=== PATIENT | male | born 1985 | race Caucasian/White ===

== ENCOUNTER 2023-01-16 13:41 | Outpatient (CLI) | payer BC, SELFPAY ==
--- NOTE | 2023-01-16 | MR_ITS ---
WS: [id number] MRI CERVICAL SPINE NONCONTRAST TECHNIQUE: Sagittal T1, T2 and STIR imaging. Axial T2, gradient, and fiesta imaging. CLINICAL INFORMATION: NECK PAIN COMPARISON: None. FINDINGS: Straightening of the normal cervical lordosis. Cord signal is normal. C2-C3: Normal. C3-C4: Mild facet arthropathy. Spinal canal and foramen are patent. C4-C5: Mild facet arthropathy. Mild LEFT and no significant RIGHT foraminal narrowing. Spinal canal i s patent. C5-C6: Mild disc osteophytic ridging. Mild facet arthropathy. Mild bilateral bony foraminal narrowing . C6-C7: Mild facet arthropathy. Spinal canal and foramen are patent. C7-T1: Mild disc bulge with a tiny annular fissure. Spinal canal and foramen are patent. Visualized brain stem structures: Normal. Prevertebral soft tissues: Normal. IMPRESSION: 1. Straightening of the normal cervical lordosis. Cord signal is normal. 2. No suspicious lesions in the cervical cord. No high-grade central canal narrowing. 3. Mild bilateral bony foraminal narrowing C5-C6 with mild facet arthropathy. 4. Tiny annular fissure C7-T1. 5. Mild facet arthropathy C3-C4 C4-C5 and C5-C6.
--- NOTE | 2023-01-16 14:01 | MR_ITS ---
WS: [id number] MRI HEAD WITHOUT CONTRAST TECHNIQUE: Sagittal T1, T2 axial, T2 axial FLAIR, axial and coronal T1 images, axial susceptibility w eighted imaging, axial diffusion weighted images, and coronal T2 images were obtained. CLINICAL INFORMATION: HEADACHE COMPARISON: CT head 02/26/2015 FINDINGS: No evidence restricted diffusion to suggest acute ischemia. Ventricular system and basal cisterns are patent. Normal posterior fossa. Normal vascular flow voids at the skull base. No extra-axial fluid c ollections. No mass or mass effect. Mild mucosal thickening in the paranasal sinuses. Opacification of the LEFT frontal sinus. Normal optic chiasm and pituitary infundibulum. Temporal lobes hippocampal formations are normal in a ppearance. Normal cavernous sinuses and Meckel's cave. No hemosiderin on the susceptibility weighted images. Normal posterior nasopharynx. Normal parapharyngeal fat. IMPRESSION: 1. No evidence of restricted diffusion to suggest acute ischemia. 2. No suspicious intracranial signal normalities. No significant parenchymal volume loss. 3. Mild mucosal thickening in the paranasal sinuses. Opacification LEFT frontal sinus. 4. No hemosiderin on susceptibility images. 5. Normal optic chiasm and pituitary infundibulum. 6. No other suspicious findings.
== END 2023-01-16 13:42 | disposition home or self-care (01) ==
PROVIDERS: PCP Family Medicine; Visit Provider Family Medicine
DX: R51.9 Headache, unspecified (principal); M54.2 Cervicalgia; M47.812 Spondylosis without myelopathy or radiculopathy, cervical region
CPT/HCPCS: 70551; 72141

== ENCOUNTER → 2023-02-02 11:33 | Outpatient (BNVA) | payer BC, SELFPAY | PROVIDERS: PCP Family Medicine; Visit Provider Internal Medicine | DX: R76.8 Other specified abnormal immunological findings in serum (principal); L40.9 Psoriasis, unspecified; M25.542 Pain in joints of left hand; M25.541 Pain in joints of right hand | CPT/HCPCS: 72202; 73120; 80053; 83516; 84403; 85025; 85651; 86140; 86160; 86162; 86200; 86235; 86255; 86376; 86431; 86480; 86704; 86803; 87340 ==

== ENCOUNTER → 2023-02-07 09:20 | Outpatient (BNVA) | payer BC, SELFPAY | PROVIDERS: PCP Family Medicine; Visit Provider Internal Medicine Cardiovascular Disease | DX: R00.1 Bradycardia, unspecified (principal) | CPT/HCPCS: 36415; 84443; 93005 ==

== ENCOUNTER → 2023-04-24 10:49 | Outpatient (BNVA) | payer BC, SELFPAY | PROVIDERS: PCP Family Medicine; Visit Provider Internal Medicine | DX: M25.50 Pain in unspecified joint (principal); R06.02 Shortness of breath | CPT/HCPCS: 82533; 82550; 82784; 83516; 83520; 83735; 84100; 86003; 86008; 86618; 86666; 86757 ==